=== PATIENT | female | born 1980 | race African-American/Black ===

== ENCOUNTER → 2016-09-19 | Outpatient (CLI) | payer OTHER ==
[~2016-09-19] VITALS: Ht 160 cm; Wt 113.6 kg
[~2016-09-19] MED LIST: AMLODIPINE BESY10 MG PO; ATENOLOL50 MG PO; BANOPHEN50 MG PO; CYMBALTA30 MG PO; Colace PO; FIORICET 50-301 EACH PO; GABAPENTIN300 MG PO; LANTUS 10100 UNITS/ SC; LASIX40 MG PO; MEDROL DOSEPAK4 MG PO; METFORMIN HCL1000 MG PO; METHADONE PO; METHADONE10 MG PO; MULTI-VITAMIN1 EAC4 PO; MULTIVITAMIN1 EAC2 PO; NICOTINE PATCH1 EAC2 TD; NOVOLOG 10100 UNITS/ SC; PHENERGAN25 MG PR; PRILOSEC20 MG PO; PROTONIX40 MG PO; Protonix PO; TRILIPTAL; Ultram PO; ZOFRAN4 MG PO; ZOLOFT50 MG PO
[2016-09-19 09:09] LABS: POINT-OF-CARE METER ID UU14107333
[2016-09-19 09:41] LABS: POINT-OF-CARE METER ID UU13113819
[2016-09-19 10:29] LABS: POINT-OF-CARE METER ID UU13113819
== END | disposition home or self-care (01) ==
LOC: AMB 07:48
PROVIDERS: Internal Medicine
DX: K29.70 Gastritis, unspecified, without bleeding (principal); R63.4 Abnormal weight loss; E11.43 Type 2 diabetes mellitus with diabetic autonomic (poly)neuropathy; E11.65 Type 2 diabetes mellitus with hyperglycemia; E66.01 Morbid (severe) obesity due to excess calories; Z79.4 Long term (current) use of insulin; Z79.84 Long term (current) use of oral hypoglycemic drugs; F11.20 Opioid dependence, uncomplicated; Z86.19 Personal history of other infectious and parasitic diseases; K76.0 Fatty (change of) liver, not elsewhere classified; I38 Endocarditis, valve unspecified; I51.7 Cardiomegaly
CPT/HCPCS: 82948; 88305; 88342 TC; J2250; J3010

== ENCOUNTER → 2017-02-02 | Outpatient (CLI) | payer OTHER ==
[~2017-02-02] MED LIST changes: +ASPIR 8181 M1 PO; +BANOPHEN25 M3 PO; +COLACE100 MG PO; +LYRICA50 MG PO; +MINIPRESS1 MG PO; +TRILEPTAL150 MG PO
[2017-02-02 09:03] LABS: HEMATOCRIT 42.1 % (36.0-46.0); MCH 29.9 PG (29.0-34.0); MCHC 31.8 G/DL (30.0-36.0); MEAN PLAT.VOLUME 10.1 uM^3 (9.5-12.4); PLATELET COUNT 86 K/uL (156-360); RBC DIS.WIDTH-CV 14.5 % (11.8-14.6); RBC DIS.WIDTH-SD 50.1 % (39-53); RED BLOOD COUNT 4.48 M/uL (3.80-5.20)
[2017-02-02 09:10] LABS: INTER. NORMALIZED RATIO 1.3; PROTHROMBIN TIME 15.3 SEC (10.2-12.9)
[2017-02-02 10:18] LABS: POINT-OF-CARE METER ID UU14174212
[2017-02-02 10:46] LABS: POINT-OF-CARE METER ID UU13113702
[2017-02-02 11:18] LABS: POINT-OF-CARE METER ID UU13113819
== END | disposition home or self-care (01) ==
LOC: OPR 01-19 09:00 → EDSTATUS 01-19 09:00 → OPR 08:36
PROVIDERS: Internal Medicine Gastroenterology
PROC: 0FB03ZX Excision of Liver, Percutaneous Approach, Diagnostic (ICD-10-PCS; principal; 2017-02-02)
DX: B18.2 Chronic viral hepatitis C (principal)
CPT/HCPCS: 77012; 82948; 85027; 85610; 85730; 88307; 88313; J1815; J3010

== ENCOUNTER 2017-08-02 03:02 | Emergency (ER) | payer OTHER ==
[~2017-08-02] VITALS: Ht 160 cm; Wt 100.0 kg
[2017-08-02 03:54] LABS: APPEARANCE SL.HAZY ((CLEAR)); BILIRUBIN NEGATIVE; BLOOD NEGATIVE; COLOR YELLOW ((YELLOW)); GLUCOSE (STRIP) 50; KETONES NEGATIVE; LEUKOCYTES NEGATIVE; NITRITE NEGATIVE; PROTEIN (STRIP) NEGATIVE; SPECIFIC GRAVITY 1.003 (1.000-1.030)
[2017-08-02 04:02] LABS: BACTERIA 1+ /HPF; EPITHELIAL CELLS 2+ /HPF; MUCUS TRACE /LPF; RED BLOOD CELLS 0-5 /HPF (0-5); UCUL ADDED? NO; WHITE BLOOD CELLS 0-5 /HPF (0-5)
[2017-08-02 04:04] LABS: AMPHETAMINE NEGATIVE (500 ng/mL); BARBITURATES NEGATIVE (200 ng/mL); BENZODIAZEPINES NEGATIVE (150 ng/mL); BUPRENORPHINE PRESUMPTIVE POSITIVE (10 ng/mL); COCAINE PRESUMPTIVE POSITIVE (150 ng/mL); METHADONE PRESUMPTIVE POSITIVE (200 ng/mL); METHAMPHETAMINE NEGATIVE (500 ng/mL); OPIATES (MORPHINE) PRESUMPTIVE POSITIVE (100 ng/mL); OXYCODONE NEGATIVE (100 ng/mL); PHENCYCLIDINE NEGATIVE (25 ng/mL); PROPOXYPHENE NEGATIVE (300 ng/mL); THC CANNABINOIDS NEGATIVE (50 ng/mL); TRICYCLIC ANTIDEPRESSANTS NEGATIVE (300 ng/mL)
[2017-08-02 04:28] LABS: CHLORIDE 105 mEq/L (99-109); POTASSIUM 3.4 mEq/L (3.7-5.4); SODIUM 140 mEq/L (136-147)
[2017-08-02 04:30] LABS: GLUCOSE 123 mg/dL (70-99)
[2017-08-02 04:33] LABS: SERUM ETHYL ALCOHOL < 10 mg/dL
[2017-08-02 04:34] LABS: CREATININE 0.7 mg/dL (0.6-1.3); GFR ESTIMATE (CALCULATED) > 59 mL/min/
[2017-08-02 04:35] LABS: UREA NITROGEN (BUN) 6 mg/dL (9-23)
[2017-08-02 04:42] LABS: QUANTITATIVE HCG < 4.0 MIU/ML
[2017-08-02 05:40] LABS: HEMATOCRIT 44.2 % (36.0-46.0); HEMOGLOBIN 15.4 G/DL (11.9-15.5); MCH 32.4 PG (29.0-34.0); MCHC 34.8 G/DL (30.0-36.0); MCV 92.9 FL (83-99); NRBC (%) 0.3 /100 WBC (0-0); PLATELET COUNT 73 K/uL (156-360); RBC DIS.WIDTH-CV 13.5 % (11.8-14.6); RBC DIS.WIDTH-SD 45.8 % (39-53); RED BLOOD COUNT 4.76 M/uL (3.80-5.20); WHITE BLOOD COUNT 6.1 K/uL (4.1-10.2)
[2017-08-02] MEDS ORDERED: CLONIDINE HCL0.1 MG PO (06:04)
[2017-08-02] MEDS ORDERED: TRAZODONE HCL50 MG PO (06:04)
[2017-08-02 13:34] VITALS: BP 145/72
== END 2017-08-02 13:35 | disposition home or self-care (01) ==
LOC: EME → EDBD 03:02 → EME 13:35
PROVIDERS: Emergency Medicine
DX: F11.23 Opioid dependence with withdrawal (principal); R10.9 Unspecified abdominal pain; I10 Essential (primary) hypertension; K21.9 Gastro-esophageal reflux disease without esophagitis; E11.9 Type 2 diabetes mellitus without complications; R82.71 Bacteriuria; Z79.4 Long term (current) use of insulin; F17.200 Nicotine dependence, unspecified, uncomplicated
CPT/HCPCS: 80048; 81003; 84702; 84999; 85027; 99281; 99283; G0480; J1630; J2550